=== PATIENT | male | born 1945 | race Caucasian/White ===

== ENCOUNTER 2023-08-29 14:04 | Outpatient (CLI) | payer OTHER, SELFPAY ==
--- NOTE | 2023-08-29 14:14 | USCV_ITS ---
Klaus Nichols Age: 78 Gender: M : 1945 Exam Date: 08/29/2023 14:46 Ordering Phys: Raudel Zavala Technologist: HERMES Exam [place] [facility] [place]: [place] [facility]. HISTORY OF CAD WITH SURGERY AND STENTS BP: / HR: 56 Rhythm: Sinus Technical Quality: Adequate MEASUREMENTS (Male / Female) Normal Values 2D ECHO LV Diastolic Diameter PLAX 4.0 cm 4.2 - 5.9 / 3.9 - 5.3 cm LV Systolic Diameter PLAX 2.8 cm LV Chamber Size 3.9 cm IVS Diastolic Thickness 0.9 cm 0.6 - 1.0 / 0.6 - 0.9 cm IVS Systolic Thickness 1.1 cm LVPW Diastolic Thickness 1.4 cm 0.6 - 1.0 / 0.6 - 0.9 cm LVPW Systolic Thickness 1.6 cm RV Chamber Size 3.2 cm LVOT Diameter 2.1 cm LV Ejection Fraction 2D Teich 56.7 % LV Ejection Fraction MOD 2C 65.0 % LV Ejection Fraction 2C AL 63.6 % LA Diameter 4.4 cm LA Width 4.6 cm LA Height 5.1 cm RA Width 4.0 cm RA Height 4.6 cm Aorta at Sinotubular Diameter 3.6 cm IVC Diameter 1.3 cm M-MODE Aortic Annulus Diameter 4.1 cm LA Ao Ratio MM 1.1 MV E Point Septal Separation 0.8 cm DOPPLER AV Peak Velocity 157.0 cm/s LVOT Peak Velocity 73.0 cm/s AV Area Cont Eq vti 1.9 cm squared AV Area Cont Eq pk 1.6 cm squared MV Area PHT 2.5 cm squared Mitral E to A Ratio 0.9 MV E' Velocity 43.5 cm/s Mitral E to MV E' Ratio 12.2 Mitral E to LV E' Lateral Ratio 14.4 Mitral E to LV E' Septal Ratio 10.6 TR Peak Velocity 206.1 cm/s TR Peak Gradient 17.0 mmHg TR Mean Velocity 125.8 cm/s TR Mean Gradient 7.7 mmHg TR Velocity Time Integral 56.9 cm TV Peak E Velocity 61.0 cm/s Right Atrial Pressure 3.0 mmHg Pulmonary Artery Systolic Pressu 20.0 mmHg RV Acceleration Time 0.1 s RV Ejection Time 0.4 s RV AcT/ET 0.3 FINDINGS Left Ventricle Left ventricle is normal in size. LV systolic function is normal with EF of 55-60%. No regional wall motion abnormalities are seen. Grade 1 diastolic dysfunction Right Ventricle Normal in size and function Right Atrium Normal in size Left Atrium Dilated Mitral Valve Moderate mitral annular calcification seen. Mild mitral regurgitation. Aortic Valve Aortic valve is thickened and calcified. No significant stenosis. Mild aortic regurgitation Tricuspid Valve Mild tricuspid regurgitation. Pulmonary artery systolic pressure is normal. Pulmonic Valve Mild pulmonic regurgitation. Pericardium Normal Aorta Normal in size IVC Appears to be normal CONCLUSIONS LV systolic function is normal with EF of 55-60% Grade 1 diastolic dysfunction Left atrial dilation Mild mitral regurgitation Mild aortic regurgitation Mild tricuspid regurgitation Mild pulmonic regurgitation No comparison studies are available. Denzel Rader MD (Electronically Signed) Final Date: 12 September 2023 11:13 S
== END 2023-08-29 14:05 | disposition home or self-care (01) ==
PROVIDERS: Visit Provider Chiropractor
DX: I25.9 Chronic ischemic heart disease, unspecified (principal)
CPT/HCPCS: 93306